=== PATIENT | male | born 1960 | race Caucasian/White ===

== ENCOUNTER 2017-10-13 14:12 | Emergency (ER) | payer OTHER, MEDICAID ==
[2017-10-13 14:21] VITALS: TEMP 97.7
--- NOTE | 2017-10-13 16:39 | EDPHY ---
HPI/HX/ROS/PE/MDM Narrative: CHIEF COMPLAINT: Fall HPI: This patient is a 56 year old male with history of Parkinson's disease and osteoporosis complaining of right-sided rib and leg pain secondary to a fall at work earlier today, around 11:00am. He slipped on some water near the bathroom and fell, primarily on his right side. His ribs on the right are hurting, and he endorses increased pain with deep inspiration in certain positions. He denies any abdominal pain. The patient has discomfrot to his right mid thigh as well. He was able to walk following the incident, but states he was not able to bear weight much on his right side. He denies hip or knee pain. He denies other recent trauma or further complaints. REVIEW OF SYSTEMS: Aside from elements discussed in the HPI, a comprehensive 10-point review of systems was reviewed and is negative. PMH: 1. Parkinson's disease 2. Osteoporosis SOCIAL HISTORY: Works at [employer]. Lives in [place]. Single. PHYSICAL EXAM: General: Mild resting tremor. Flat affect. Patient is alert, in no acute distress. ENT:Eyes are normal to inspection. ENT inspection normal. Neck: Normal inspection. Full range of motion. Respiratory: Tenderness to upper right ribs. No respiratory distress. Breath sounds normal bilaterally. Cardiovascular: Regular rate and rhythm. Strong peripheral pulses. Normal cap refill. Abdomen:The abdomen is nontender to palpation. There are no peritoneal signs. There are normal bowel sounds. Back: Normal to inspection. No tenderness to palpation. Skin: Normal color. No rash. Warm and dry. Extremities: Tenderness to right mid thigh. Normal appearance. Neuro: Oriented x3. Mild resting tremor. Normal sensory function. ED Course: 56 y/o male presents with right-sided rib and leg pain secondary to a mechanical fall from standing around 11:00am this morning. Exam reveals tenderness to the right upper ribs and the right mid-thigh. The patient has a mild resting tremor consistent with his Parkinson's presentation. He was mildly tachycardic at triage, HR 101. Plan for x-ray of chest and right femur for further evaluation. 17:[address] Lee, radiologist. Femur x-ray suspicious for distal femoral shaft fracture, recommend CT for further evaluation. Chest x-ray negative for rib fractures. Possible right upper lobe mass and left upper lobe nodule, recommend CT for further evaluation. 17:57 Reassessed patient. Discussed imaging results. Discussed need for CT for further evaluation. He agrees to proceed with CT evaluation of femur and chest. 18:[address] Brooks, radiologist. CT chest shows nondisplaced fracture of rib 11. Femur CT shows incomplete fracture of the intertrochanteric region of the femur. Plan to consult with orthopedic surgeon monorail operator. 19:[address] Urbina, orthopedic surgeon. He will consult. 20:[address] Urbina, orthopedic surgeon. The patient's symptoms are not consistent with CT findings, as noted earlier. The patient now complains of lateral knee pain, suspect sprain. Plan do discharge home in good condition with knee immobilizer. He will follow up with Dr. Urbina in 2-3 weeks for further evaluation. Follow up and return precautions for rib fracture and knee strain discussed. The patient is comfortable with this plan. - Data Points Imaging Results: Imaging Impressions Ribs w/Chest X-Ray 10/13/17 16:42 Impression: 1. No rib fracture. 2. Possible right upper lobe mass and left upper lobe nodule. If there are any old outside chest x-rays, we would be happy to review them to assess for interval change. If not, consider noncontrast chest CT. 2. Right Femur, 4 views History: Pain post fall today Comparison: None Findings: I am suspicious that there is an acute nondisplaced, spiral fracture coursing through the distal femoral shaft however, I only see it on the AP view and it is possible that this is related to soft tissue lucency overlap rather than a true fracture. There is atherosclerotic calcification of the superficial femoral, popliteal and trifurcation arteries. The knee and hip joints are normally aligned. Impression: Equivocal distal femoral shaft fracture. Results discussed with Dr. Sue at 5:33 pm. Femur X-Ray 10/13/17 16:43 Impression: 1. No rib fracture. 2. Possible right upper lobe mass and left upper lobe nodule. If there are any old outside chest x-rays, we would be happy to review them to assess for interval change. If not, consider noncontrast chest CT. 2. Right Femur, 4 views History: Pain post fall today Comparison: None Findings: I am suspicious that there is an acute nondisplaced, spiral fracture coursing through the distal femoral shaft however, I only see it on the AP view and it is possible that this is related to soft tissue lucency overlap rather than a true fracture. There is atherosclerotic calcification of the superficial femoral, popliteal and trifurcation arteries. The knee and hip joints are normally aligned. Impression: Equivocal distal femoral shaft fracture. Results discussed with Dr. Sue at 5:[address] 10/13/17 17:38 Impression: Nondisplaced incomplete fracture through the anterior cortex right femur at the proximal metadiaphysis at the level of the lesser trochanter. Results called and discussed with Baldo Sue M.D., on October 13, 2017 at 1842. E:amm Chest CT 10/13/17 17:47 Impression:1. No pathologic lesion in either upper lobe. 2. Multiple thoracic compressions, worst involving T4. Relation with the site of pain is recommended. If it is clinically important to computer designer the age of the compressions, then MRI would be useful to assess for bone marrow edema. The patient should continue bisphosphonate therapy. 3. Acute nondisplaced left posterior 11th rib fracture. Results discussed with Dr. Sue at 6:40 PM. Imaging: I viewed and interpreted images myself General Time Seen by Provider: 10/13/17 16:25 Initial Vital Signs: Initial Vital Signs Temperature (C) 36.5 C 10/13/17 14:16 Heart Rate 101 H 10/13/17 14:16 Respiratory Rate 18 10/13/17 14:16 Blood Pressure 131/77 H 10/13/17 14:16 O2 Sat (%) 98 10/13/17 14:16 O2 Delivery Mode Room Air Allergies/Adverse Reactions: No Known Allergies Allergy (Unverified 10/13/17 14:21) Home Medications: Medication Instructions Recorded Carbidopa-Levo 10-100 mg Odt 10/13/17 Fosamax 35 MG 10/13/17 oxyCODONE/APAP 5/325 [Percocet 1 - 2 tab PO Q4H PRN #14 tab 10/13/17 5/325 (*)] Departure - Departure Disposition: Home, Routine, Self-Care Clinical Impression: Rib fracture Qualifiers: Encounter type: initial encounter Rib fracture type: single rib Fracture type: closed Laterality: right Qualified Code(s): S22.31XA - Fracture of one rib, right side, initial encounter for closed fracture Knee sprain Qualifiers: Encounter type: initial encounter Involved ligament of knee: lateral collateral ligament Laterality: right Qualified Code(s): S83.421A - Sprain of lateral collateral ligament of right knee, initial encounter Condition: Good Instructions: Knee Sprain (ED), Rib Fracture (ED), Knee Immobilizer (ED) Additional Instructions: Rib fracture additional instructions: 1. Follow up with your primary doctor within 72 hours for reevaluation. 2. Use incentive spirometer as directed several times daily. 3. Return to the emergency department for fever, worsening pain, shortness of breath or difficulty breathing, abdominal pain, blood in urine or other concerns. Knee sprain additional instructions: 4. Follow up with Dr. Urbina, sales and service specialist, in 2-3 weeks for further evaluation of your leg pain. Wear your knee immobilizer until reevaluation. Avoid weight bearing as much as possible. 5. Rest, ice, and elevation will help relieve your knee pain. 6. Return to the emergency department for worsening pain, swelling, numbness, weakness or other concerns. Wear splint at all times until reevaluation, but okay to shower and sleep without splint. Use ibuprofen in addition to prescribed pain medication as directed for pain. Referrals: ERIKA WELLER [Other] - As per Instructions Wali Urbina MD [Medical Doctor] - As per Instructions Prescriptions: oxyCODONE/APAP 5/325 [Percocet 5/325 (*)] 1 - 2 tab PO Q4H PRN #14 tab PRN Reason: Pain, Severe Report Scribed for: Baldo Sue Report Scribed by: Glo Mireles Date of Report: 10/13/17 Time of Report: 16:39 Physician Review and Approval Statement: Portions of this note were transcribed by an ED scribe. I personally performed the history, physical exam, and medical decision making; and confirm the accuracy of the information in the transcribed note.
[2017-10-13 19:38] VITALS: O2SAT 96
--- NOTE | 2017-10-13 21:19 | GCON ---
[f rep st] CONSULTATION CONSULTATION FOR DR. FATIMA IN THE [facility] EMERGENCY ROOM. DATE OF CONSULTATION: 10/13/2017 CHIEF COMPLAINT: Right thigh pain after a fall. HISTORY OF PRESENT ILLNESS: This patient is a 56-year-old male with a history of Parkinson disease and osteoporosis who tripped and fell earlier today at work. He fell onto his right side. After the fall he had pain in his right rib cage and in his right thigh. He was able to walk after the incident, but began having increasing pain with weightbearing after the fall. He complained of pain in his anterior and distal thigh as well as pain in his chest upon breathing. He denies any prior leg pain prior to this incident. The patient presented to the ER. He was evaluated by the ER and x-ray was taken of that thigh. There was concern on the x-ray that there might be a distal femur spiral fracture and thus a CT scan was ordered. The CT scan did not show any pathology in the distal femur and did not show any spiral fractures as mentioned ; however, it did show an incomplete cortical irregularity through his anterior cortex at about the level of his lesser trochanter. I was thus consulted to evaluate this finding and his leg pain. OBJECTIVE: GENERAL: Pleasant, lying in bed. PULMONARY: Chest rise equal and unlabored bilaterally with some discomfort on inspiration. CARDIOVASCULAR: Less than 2-second capillary refill in the upper extremities distally. MUSCULOSKELETAL: Right lower extremity: The patient has some pain to palpation of the musculature of his distal thigh, his quad. He is tender to palpation at his knee along the lateral hamstring and along the lateral joint line. On log roll the patient does not have any hip pain and in fact on log roll the patient complains of knee pain. He is able to actively flex and extend his knee. He has some pain with varus stress, though stable. No pain with valgus stress. He has a stable anterior drawer. He has pain with posterior drawer. Does not have a palpable effusion. IMAGING: X-ray and CT scan of the femur were reviewed. As discussed above, notably the patient does not have any visible sequelae of bisphosphonate use which he is on. There is no cortical beaking seen which would indicate a bisphosphonate type pathologic fracture. As mentioned on the CT scan there is a cortical irregularity that is incomplete, only through the anterior cortex at about the level of the lesser troch ASSESSMENT/PLAN: Right knee sprain. The patient by exam has a ligamentous injury to his knee. He has both pain along his lateral collateral ligament and his lateral hamstring as well as possible injury to the PCL. The radiographic findings seen do not appear to correlate to his symptoms. The cortical irregularity is at about the level of his lesser and he does not complain of any pain in his proximal thigh or in his groin or hip. He does not have any pain with log roll in the hip or with flexion of the hip in the hip joint itself , thus this is likely an incidental finding. However, since the patient is on bisphosphonates, to protect the femur, I recommend that he is nonweightbearing with crutches. I will recommend to the emergency room to provide the patient with a knee brace to protect the knee. He is to not weight bear and should follow up in about 2 weeks and we will reevaluate his pain. If there is any increase in pain of any sort, he is instructed to return. /[id number]/MODL MTDD
[2017-10-13 21:53] VITALS: BP 135/73; PULSE 78; RESP 18
== END 2017-10-13 21:53 | disposition home or self-care (01) ==
DX: S22.31XA Fracture of one rib, right side, initial encounter for closed fracture (principal); S83.421A Sprain of lateral collateral ligament of right knee, initial encounter; G20 Parkinson's disease; W01.0XXA Fall on same level from slipping, tripping and stumbling without subsequent striking against object, initial encounter; Y92.69 Other specified industrial and construction area as the place of occurrence of the external cause; Y99.0 Civilian activity done for income or pay; Y93.89 Activity, other specified

== ENCOUNTER 2017-11-13 09:30 | Inpatient (IN) | payer OTHER, BC ==
[2017-11-13] MEDS ORDERED: ceFAZolin 2 GM/SWFI 2 GM/20 ML SYR IVP ONE (09:33)
[2017-11-13] MEDS ORDERED: LIDOCAINE 1% 2 ML INJ ID PRN (09:34)
[2017-11-13] MEDS ORDERED: LR 1,000 ML IV ONE (09:34)
[2017-11-13] MEDS ORDERED: BUPIVACAINE 0.5% 30 ML SDV ONE (09:59)
[2017-11-13] MEDS ORDERED: BACITRACIN 50,000 UNITS/10 ML SYR IRR ONE ×2 (10:00→11:21)
[2017-11-13] MEDS ORDERED: POLYMYXIN B SULFATE 500,000 UNIT/10 ML SYR IRR ONE ×2 (10:00→11:21)
--- NOTE | 2017-11-13 10:54 | PDHPUP ---
History & Physical Update H&P update statement: This history and physical update is based on an assessment of the patient which was completed after admission or registration (within 24 hours), but prior to the surgery/procedure. H&P update: H&P reviewed & patient examined, no change in patient's condition since H&P completed H&P changes: lungs CTA bilaterally
--- NOTE | 2017-11-13 10:58 | PDANEPAE ---
ANE History of Present Illness here for TFN ANE Past Medical History - Cardiovascular History Hx Hypertension: No Hx Arrhythmias: No Hx Chest Pain: No Hx Coronary Artery / Peripheral Vascular Disease: No Hx CHF / Valvular Disease: No Hx Palpitations: No - Pulmonary History Hx COPD: No Hx Asthma/Reactive Airway Disease: No Hx Recent Upper Respiratory Infection: No Hx Oxygen in Use at Home: No Hx Sleep Apnea: No Sleep Apnea Screening Result - Last Documented: Negative - Neurologic History Hx Cerebrovascular Accident: No Hx Seizures: No Hx Dementia: No - Endocrine History Hx Diabetes: No - Renal History Hx Renal Disorders: No - Liver History Hx Hepatic Disorders: No - Neurological & Psychiatric Hx Hx Neurological and Psychiatric Disorders: No - Cancer History Hx Cancer: No - Congenital Disorder History Hx Congenital Disorders: No - GI History Hx Gastrointestinal Disorders: No - Other Health History Other Health History: none - Chronic Pain History Chronic Pain: No - Surgical History Prior Surgeries: none ANE Review of Systems Review of systems is: negative Review of Systems: - Exercise capacity METS (RN): 4 METS ANE Patient History - Allergies Allergies/Adverse Reactions: No Known Allergies Allergy (Verified 11/09/17 14:38) - Home Medications Home medications: home medication list seen and reviewed Home Medications: Carbidopa-Levo 10-100 mg Odt 10/13/17 [Last Taken 11/13/17 08:00] Fosamax 35 MG 10/13/17 [Last Taken 11/09/17] oxyCODONE/APAP 5/325 [Percocet 5/325 (*)] 11/09/17 [Last Taken 10/14/17] - NPO status NPO Status: no food or drink >8 hours NPO Since - Liquids (Date): 11/12/17 NPO Since - Liquids (Time): 21:00 NPO Since - Solids (Date): 11/12/17 NPO Since - Solids (Time): 19:30 - Anes Hx Anes Hx: no prior problems - Smoking Hx Smoking Status: Never smoked - Family Anes Hx Family Hx Anesthesia Complications: none ANE Labs/Vital Signs - Vital Signs Vital Signs: reviewed preoperatively; see RN documention for details Blood Pressure: 113/76 Heart Rate: 89 Respiratory Rate: 16 O2 Sat (%): 96 Height: 175.26 cm Weight: 65.771 kg ANE Physical Exam - Airway Neck exam: FROM Mallampati Score: Class 1 - Pulmonary Pulmonary: no respiratory distress - Cardiovascular Cardiovascular: regular rate and rhythym - ASA Status ASA Status: II ANE Anesthesia Plan Anesthesia Plan: GA w LMA
[2017-11-13] MEDS ORDERED: PROPOFOL 200 MG/20 ML VIAL ONE ×2 (11:09→11:37)
[2017-11-13] MEDS ORDERED: fentaNYL 100 MCG/2 ML INJ ONE ×4 (11:11→14:10)
[2017-11-13] MEDS ORDERED: BUPIVACAINE/EPI 0.5% 30 ML SDV ONE (11:21)
[2017-11-13] MEDS ORDERED: ONDANSETRON 4 MG/2 ML VIAL IVP PRN ×2 (11:47→13:18)
[2017-11-13] MEDS ORDERED: NALOXONE HCL 0.4 MG/ML INJ IVP PRN (11:47)
[2017-11-13] MEDS ORDERED: ALBUTEROL 3 ML DEYVIAL IH PRN (11:47)
[2017-11-13] MEDS ORDERED: ACETAMINOPHEN 325 MG TAB PO PRN (13:18)
[2017-11-13] MEDS ORDERED: PROMETHAZINE HCL 25 MG/ML INJ IVP PRN (13:18)
--- NOTE | 2017-11-13 13:24 | POSTOPPROG ---
Post Op Note Date of Operation: 11/13/17 Surgeon: Kristina Garcia Biomedical Equipment Technician: Lesli Nixon PA-C Anesthesiologist: Dr. Jerry Bee Anesthesia: GET(General Endotracheal) Pre-op Diagnosis: right hip fracture Post-op Diagnosis: right hip fracture Indication: fracture stabilization Procedure: right TFN Inf/Abcess present in the surg proc area at time of surgery?: No EBL: Minimal Complications: none
--- NOTE | 2017-11-13 13:28 | SOAPPROG ---
SOAP Progress Note Assessment/Plan: Assessment/Plan: 56y/o male s/p right TFN - orders as written - xrays pending - PT/OT - will start Xarelto POD#2 for DVT prevention; SCDs/TEDs - anticipate discharge tomorrow, will need rehab due to living along and Parkinson's Disease in conjunction with recent surgery - call with issues or concerns 11/13/17 13:26 Subjective: waking from anesthesia, no current complaints Objective: Vital Signs Temp Pulse Resp BP Pulse Ox 36.5 C 89 16 113/76 96 11/13/17 09:54 11/13/17 10:58 11/13/17 10:58 11/13/17 10:58 11/13/17 10:58 NAD, waking from anesthesia EOMi, face symmetric MAEx4 incisions CDI ICD10 Worksheet Patient Problems: Problems Problem Status Onset Hip fracture Acute - ICD10 Problem Qualifiers (1) Hip fracture
[2017-11-13] MEDS: fentaNYL 100 MCG/2 ML INJ IVP PRN ×2 (14:13→14:29)
[2017-11-13] MEDS ORDERED: CARBIDOPA/LEVODOPA 25 MG/100 MG TAB PO SCH (16:00)
--- NOTE | 2017-11-13 16:13 | POSTANESTH ---
Post Anesthetic Evaluation Cardiovascular Status: Normal, Stable Respiratory Status: Normal, Stable Level of Consciousness/Mental Status: Can Participate in Eval Pain Control: Adequate, Prn Tx Ordered Nausea/Vomiting Control: Adequate, Prn Tx Ordered Complications Possibly Related to Anesthesia: None Noted
[2017-11-13] MEDS: OXYCODONE/APAP 5/325 TAB PO PRN (16:30)
[2017-11-13] MEDS ORDERED: CARBIDOPA/LEVODOPA 25 MG/100 MG TAB PO ONE (17:15)
--- NOTE | 2017-11-13 20:35 | GOP ---
[f rep st] OPERATIVE REPORT DATE OF OPERATION: 11/13/2017 SURGEON: Kristina Garcia MD JAVASCRIPT UI DEVELOPER: Lesli Nixon, ADRIEN. ANESTHESIA: General. PREOPERATIVE DIAGNOSIS: Nondisplaced right intertrochanteric hip fracture. POSTOPERATIVE DIAGNOSIS: Nondisplaced right intertrochanteric hip fracture. PROCEDURE PERFORMED: Intramedullary nailing of right intertrochanteric hip fracture. FINDINGS: Preoperative x-rays and MRI of the patient's right hip demonstrated a nondisplaced intertr ochanteric hip fracture. The patient has a history of Parkinson disease, so operative treatment was recommended. The patient was placed in a supine position on the fracture table and a Synthes TFN int ramedullary device was placed in the proximal femur. The nail was introduced through the tip of the trochanter. A 235 mm x 12 mm titanium TFN brice was utilized. Position of the brice was confirmed in ursula th the AP and lateral planes. A 90 mm helical blade was placed into the femoral neck and head. Agai n, position of the blade was confirmed in both the AP and lateral planes. Finally, a 34 mm interlock ing screw was placed in the distal portion of the brice. Intraoperative imaging confirmed anatomic red uction of the fracture and good position of all hardware. ESTIMATED BLOOD LOSS: 200 cc. DESCRIPTION OF PROCEDURE: The patient was taken to the operating room, placed in a supine position o n the fracture table. Following induction of adequate general inhalation anesthesia, the patient was positioned on the fracture table and the C-arm was brought in for visualization. The fracture reduc tion was confirmed in the AP and lateral planes. The leg and hip area were then prepped and draped i n the usual sterile manner. The patient received 2 g of IV Ancef. A longitudinal incision was made extending from the greater trochanter proximally for approximately 10-12 cm. Incision was carried do wn through the subcutaneous tissue to the fascia overlying the adductor musculature. This was split in line with the incision and the musculature was retracted. The tip of the trochanter was located. A guide pin was inserted through the tip of the trochanter and once it was positioned appropriately in both the AP and lateral planes, the proximal reaming device was utilized. The guidewire was then inserted and passed down the femur and the femur was reamed up to 13.5 mm. The 12 mm titanium TFN na il was inserted and impacted. The helical blade was then inserted. First, the guide pin was placed and then the femoral neck and head were drilled and the helical blade was opened and inserted. Posit ion was confirmed in both the AP and lateral planes. Next, the distal interlock was inserted. A sta b wound was made laterally and then the hole was drilled and measured and the screw was inserted with out difficulty. The proximal compression screw was then tightened and backed off half a turn. The o utrigger device was removed and the wounds were irrigated out. The C-arm was used to confirm satisfa ctory position of the hardware and the fracture. The wound was then closed using 0 Vicryl in the fas megan followed by 2-0 Vicryl in subcutaneous tissue, and facundo in the skin. Sterile dressings were a pplied. The patient tolerated the procedure well and there were no complications. Estimated blood l oss approximately 200 cc. The wounds were injected with 20 cc of 0.5% Marcaine with epinephrine. e patient was transported to the recovery room in good condition. /[id number]/MODL
[2017-11-13] MEDS: CARBIDOPA/LEVODOPA 25 MG/100 MG TAB PO SCH (22:13)
[2017-11-14] MEDS: OXYCODONE/APAP 5/325 TAB PO PRN ×4 (05:45→18:00)
[2017-11-14] MEDS: CARBIDOPA/LEVODOPA 25 MG/100 MG TAB PO SCH ×4 (08:42→21:20)
[2017-11-14] MEDS: CHOLECALCIFEROL VIT D3 1,000 UNITS TAB PO SCH (08:42)
[2017-11-14] MEDS ORDERED: PNEUMOCOCCAL 0.5ML VACCINE VIAL IM ONE (08:49)
[2017-11-14] MEDS ORDERED: FLU VACC QS 2017-18 (3YR+)/PF 0.5 ML SYR (FLUARIX QUAD) IM ONE (08:49)
--- NOTE | 2017-11-14 14:29 | SOAPPROG ---
SOAP Progress Note Assessment/Plan: Assessment/Plan: 56y/o male s/p right TFN - orders as written - xrays show stable hardware - PT/OT, recommending inpatient rehab - will start Xarelto POD#2 for DVT prevention; SCDs/TEDs - patient will need rehab due to living alone and Parkinson's Disease in conjunction with recent surgery, have discussed with case management as well - call with issues or concerns 11/14/17 14:24 Subjective: Pain well controlled. Some difficulty getting out of bed yesterday due in some part to delay in Parkinson's meds. Had nausea yesterday, improved today. Ankles feel a bit sore/tight bilaterally Objective: Vital Signs Temp Pulse Resp BP Pulse Ox 36.4 C 89 16 100/57 L 93 11/14/17 11:34 11/14/17 11:34 11/14/17 11:34 11/14/17 11:34 11/14/17 11:34 Laboratory Results 11/14/17 04:44 11/13/17 11/14/17 11/15/17 05:59 05:59 05:59 Intake Total 1450 400 Output Total 695 550 Balance 755 -150 NAD, well appearing, no distress EOMi, face symmetric MAEx4 incision clean, dressed; no drainage/shadowing on dressing neurovascularly intact ICD10 Worksheet Patient Problems: Problems Problem Status Onset Hip fracture Acute - ICD10 Problem Qualifiers (1) Hip fracture
--- NOTE | 2017-11-14 16:46 | ASMTCMCOM ---
CM Note CM Note Notes: S/p surgery for hip fx, OT/PT rec inpatient rehab today (order is in and VM left for admissions). Work comp faxed clinicals today, will need to authorize inpat rehab or SNF. Pt interested in [facility] if SNF, spoke w [facility] admissions and they do negotiate with work comp, referral sent in [employer]. [facility] Claim is [id number] bag adjuster is Lauren Sky [phone] F:[phone]. CM to follow. Date Signed: 11/14/2017 04:45 PM Electronically Signed By:ALVARO Higgins
[2017-11-15] MEDS: OXYCODONE/APAP 5/325 TAB PO PRN ×2 (04:25→12:30)
[2017-11-15] MEDS: CHOLECALCIFEROL VIT D3 1,000 UNITS TAB PO SCH (08:51)
[2017-11-15] MEDS: CARBIDOPA/LEVODOPA 25 MG/100 MG TAB PO SCH ×4 (08:51→20:31)
[2017-11-15] MEDS: RIVAROXABAN 10 MG TAB PO SCH (08:51)
--- NOTE | 2017-11-15 16:58 | ASMTCMCOM ---
CM Note CM Note Notes: Updated PT/OT notes sent to work comp today, rec is still inpatient rehab. CM to follow. Date Signed: 11/15/2017 04:57 PM Electronically Signed By:ALVARO Higgins
--- NOTE | 2017-11-15 20:58 | SOAPPROG ---
SOAP Progress Note Assessment/Plan: Assessment/Plan: 56y/o male s/p right TFN, stable and doing well - orders as written - xrays show stable hardware - PT/OT, recommending inpatient rehab - Xarelto started today for DVT prevention; continue SCDs/TEDs - patient will need rehab due to living alone and Parkinson's Disease in conjunction with recent surgery, have discussed with case management as well - call with issues or concerns, to rehab when accepted late entry: patient seen at approximately 2:30pm 11/15/17 20:55 Subjective: Pain well controlled. Eating, drinking, voiding. Ankle stiffness better today, closer to baseline with Parkinson's Disease. Hasn't yet worked with PT/OT. note: late entry, patient seen at approximately 2:30pm Objective: Vital Signs Temp Pulse Resp BP Pulse Ox 36.4 C 92 17 129/68 H 97 11/15/17 19:57 11/15/17 19:57 11/15/17 19:57 11/15/17 19:57 11/15/17 19:57 Laboratory Results 11/14/17 04:44 11/14/17 11/15/17 11/16/17 05:59 05:59 05:59 Intake Total 1450 1900 620 Output Total 695 1250 650 Balance 755 650 -30 NAD, no distress EOMi, face symmetric MAEx4 right hip dressings clean, dry and intact no visible signs of infection bilateral lower extremities grossly neurovascularly intact able to dorsiflex/plantarflex ICD10 Worksheet Patient Problems: Problems Problem Status Onset Hip fracture Acute - ICD10 Problem Qualifiers (1) Hip fracture
[2017-11-16] MEDS: OXYCODONE/APAP 5/325 TAB PO PRN (05:42)
[2017-11-16] MEDS: CARBIDOPA/LEVODOPA 25 MG/100 MG TAB PO SCH ×3 (08:58→16:51)
[2017-11-16] MEDS: RIVAROXABAN 10 MG TAB PO SCH (08:58)
[2017-11-16] MEDS: CHOLECALCIFEROL VIT D3 1,000 UNITS TAB PO SCH (08:59)
--- NOTE | 2017-11-16 14:38 | SOAPPROG ---
SOAP Progress Note Assessment/Plan: Assessment/Plan: 56y/o male s/p right TFN, stable and doing well - orders as written - xrays show stable hardware - PT/OT, recommending inpatient rehab - [facility] SCDs - ankle stiffness, suspect Parkinson's largely contributing - patient will need rehab due to living alone and Parkinson's Disease in conjunction with recent surgery, have discussed with case management as well - call with issues or concerns, to rehab when accepted 11/16/17 14:36 11/16/17 14:56 Subjective: Hip pain well controlled, Continues to have some ankle stiffness Objective: Vital Signs Temp Pulse Resp BP Pulse Ox 36.9 C 97 14 97/57 L 93 11/16/17 07:29 11/16/17 07:29 11/16/17 07:29 11/16/17 07:29 11/16/17 07:29 Laboratory Results 11/14/17 04:44 11/15/17 11/16/17 11/17/17 05:59 05:59 05:59 Intake Total 1900 620 Output Total 1250 1225 175 Balance 650 -605 -175 NAD, well appearing, no distress EOMi, face symmetric MAEx4 bilateral ankle tightness hip incisions CDI, no erythema or active drainage ICD10 Worksheet Patient Problems: Problems Problem Status Onset Hip fracture Acute - ICD10 Problem Qualifiers (1) Hip fracture
--- NOTE | 2017-11-16 14:42 | PDIAF ---
- Diagnosis Diagnosis: right hip fracture Code Status: Full Code - Medication Management Discharge Medications: Medications to Continue on Transfer Alendronate Sodium [Fosamax 35 MG] 35 mg PO TH 11/13/17 [Last Taken 11/09/17] Carbidopa/Levodopa [Carbidopa-Levodopa 25-100 Tab] 2 each PO 08,1230,17,2130 [Last Taken 11/13/17 08:00] Cholecalciferol Vit D3 [Vitamin D3 (*)] 1,000 units PO DAILY 11/13/17 [Last Taken Unknown] Herbals/Supplements -Info Only 1 ea PO DAILY 11/13/17 [Last Taken Unknown] Acetaminophen [Tylenol 325mg (*)] 325 - 650 mg PO Q4HRS PRN tab 11/16/17 [Last Taken Unknown] Rivaroxaban [Xarelto 10mg (*)] 10 mg PO DAILY tab 11/16/17 [Last Taken Unknown] oxyCODONE IR [Oxycodone Ir (*)] 5 mg PO Q4 PRN #30 tab 11/16/17 [Last Taken Unknown] oxyCODONE/APAP 5/325 [Percocet 5/325 (*)] 1 - 2 tab PO Q3HRS PRN tab 11/16/17 [ Last Taken Unknown] Discharge Medications: Refer to the Discharge Home Medication list for PRN reason. PICC Care - Routine: N/A - Orders Diet Recommendation: no restrictions on diet Epifanio Stockings Discontinue Date: continue until ambulating 100 yards tid Wound Care Instructions: keep incision clean and dry Date to Remove Sutures/[place]: 11/27/17 Activity/Weight Bearing Restrictions: WBAT Equipment: walker - Follow Up Care Current Providers and Referrals: ERIKA WELLER [Other]
[2017-11-16 15:30] VITALS: BP 100/58; PULSE 84; RESP 16; TEMP 97.9; O2SAT 95
[2017-11-16] MEDS ORDERED: ALENDRONATE SODIUM 35 MG PO SCH (15:36)
--- NOTE | 2017-11-16 16:35 | ASMTCMCOM ---
CM Note CM Note Notes: [facility] Work work comp ins approved pt first choice of [facility], financial agreement arranged w SNF. [facility] transport scheduled for 1700. Orders sent in [employer]. Date Signed: 11/16/2017 04:35 PM Electronically Signed By:ALVARO Higgins
--- NOTE | 2017-11-17 11:04 | ASDISCHSUM ---
Discharge Information Plan Status:SNF Medically Cleared to Leave: Discharge Date:11/16/2017 05:20 PM D/C Disposition:[facility] Living Facility ADT D/C Disposition:Other Rehab, Not [place] Projected Discharge Date:11/16/2017 11:00 AM Transportation at D/C:Wheelchair Van Discharge Delay Reason: Follow-Up Date:11/16/2017 11:00 AM Discharge Slot: Final Diagnosis: Placement Information Referral Type:*Retirement/SNF Referral ID:[id number] Provider Name:[facility] Address 1:[address] Address 2: City:[place] Selection Factors: State:[place] Patient Contact Information Contact Name:ROSA Relationship:Sister Address: Work Phone: City: [facility] Phone: State/Zip Code:[place] Email: Financial Information Financial Class:Worker's Compensation Primary Plan Desc:[employer] WORK COMP Primary Plan Number:[facility]#[id number] Secondary Plan Desc: [facility] Secondary Plan Number:[id number] Assessment Information [facility] CM Progress Note CM Note CM Note Notes: S/p surgery for hip fx, OT/PT rec inpatient rehab today (order is in and VM left for admissions). Work comp faxed clinicals today, will need to authorize inpat rehab or SNF. Pt interested in [facility] if SNF, spoke w [facility] admissions and they do negotiate with work comp, referral sent in [employer]. [facility] Claim is [id number] clerical adjuster is Lauren Sky [phone] F:[phone]. CM to follow. Date Signed: 11/14/2017 04:45 PM Electronically Signed By:ALVARO Higgins [facility] CM Progress Note CM Note CM Note Notes: Updated PT/OT notes sent to work comp today, rec is still inpatient rehab. CM to follow. Date Signed: 11/15/2017 04:57 PM Electronically Signed By:ALVARO Higgins [facility] CM Progress Note CM Note CM Note Notes: [facility] Work work comp ins approved pt first choice of [facility], financial agreement arranged w [facility]. [employer] transport scheduled for 1699. Orders sent in [employer]. Date Signed: 11/16/2017 04:35 PM Electronically Signed By:ALVARO Higgins Intervention Information
== END 2017-11-16 17:20 | DRG 482 ==
LOC: FSGY 09:30 → F3N 13:18
PROVIDERS: ADMIT Orthopaedic Surgery; ATTEND Orthopaedic Surgery
PROC: BQ101ZZ Fluoroscopy of Right Hip using Low Osmolar Contrast (ICD-10-PCS; 2017-11-13)
PROC: 0QS606Z Reposition Right Upper Femur with Intramedullary Internal Fixation Device, Open Approach (ICD-10-PCS; principal; 2017-11-13 10:45)
DX: S72.144A Nondisplaced intertrochanteric fracture of right femur, initial encounter for closed fracture (principal); S73.191A Other sprain of right hip, initial encounter; Y99.0 Civilian activity done for income or pay; Y92.512 Supermarket, store or market as the place of occurrence of the external cause; Y93.9 Activity, unspecified; G20 Parkinson's disease; M25.673 Stiffness of unspecified ankle, not elsewhere classified; J45.909 Unspecified asthma, uncomplicated; M81.0 Age-related osteoporosis without current pathological fracture
CPT/HCPCS: 97116-GP; 97162-GP; 97166-GO; 97530-GO; 97530-GP; 97535-GO; C1713; G0008; G0009; J0690; J2405; J2704; J3010